=== PATIENT | female | born 1950 | race Caucasian/White ===

== ENCOUNTER 2017-02-17 12:45 | Emergency (ER) | payer SELFPAY ==
[~2017-02-17 12:45] MED LIST: NAPR-576 PO
[2017-02-17 12:47] VITALS: BP 167/89; PULSE 75; RESP 16; TEMP 98.5; O2SAT 97
--- NOTE | 2017-02-17 13:16 | PD ---
HPI Chief Complaint: Musculoskeletal Complaint Time Seen by Provider: 13:16 Travel History International Travel<30 days: No Contact w/Intl Traveler<30days: No Traveled to known affect area: No History of Present Illness HPI 66-year-old female presents to the emergency department complaining of right knee pain for approximately one month. States that she was walking approximately one month ago and felt a crack in her knee and developed increased pain since then. Currently she has pain with flexion and extension of her knee in particular has pain from the sitting to a standing position. Patient has not taken any medication [id number] for her pain or wrapped and iced.. When asked about her pain she points to the posterior aspect of her knee. Patient denies trauma, fever, chills, chest pain, shortness of breath, recent travel, blood disorders, surgeries, or fractures. Denies numbness, tingling, or weakness. PFSH Past Medical History Asthma: Yes Depression: Yes High Cholesterol: Yes COPD: Yes Cerebrovascular Accident: Yes (MINI STROKE) Diabetes: No Diminished Hearing: No GERD: Yes Headaches: Yes Hypertension: Yes Kidney Stones: Yes Neurologic: Yes (TUMOR BEHIND EYE) Seizures: Yes (SEIZURE 2001, CAUSE UNKNOWN, TOOK DILANTIN FOR SHORT PERIOD) Menopausal: Yes : 3 Para: 3 Past Surgical History Abdominal Surgery: Yes Section: Yes Hysterectomy: Yes Tonsillectomy: Yes Social History Alcohol Use: No Tobacco Use: No Substance Use: No Allergies-Medications (Allergen,Severity, Reaction): Coded Allergies: penicillin G (Unverified Allergy, Unknown, 11/19/16) Reported Meds & Prescriptions Reported Meds & Active Scripts Active Naproxen 500 Mg Tab 500 Mg PO Q12HR PRN Review of Systems Except as stated in HPI: all other systems reviewed are Neg Physical Exam Narrative GENERAL: Well developed well nourished in mild distress SKIN: Focused skin assessment warm/dry. HEAD: Atraumatic. Normocephalic. NECK: Trachea midline. No JVD. CARDIOVASCULAR: Regular rate and rhythm. No murmur appreciated. RESPIRATORY: No accessory muscle use. Clear to auscultation. Breath sounds equal bilaterally. MUSCULOSKELETAL: No obvious deformities. No clubbing. No cyanosis. No edema. Right knee TTP to appear aspect of posterior knee, mild TTP of the patella. Mild edema surrounding the knee joint. No erythema or lymphangitic Spread. Skin intact. Neurovascularly intact. Gabrielle's Sign negative bilaterally NEUROLOGICAL: Awake and alert. No obvious cranial nerve deficits. Motor grossly within normal limits. Normal speech. PSYCHIATRIC: Appropriate mood and affect; insight and judgment normal. Data Data Last Documented VS Vital Signs Date Time Temp Pulse Resp B/P (MAP) Pulse Ox O2 Delivery O2 Flow Rate FiO2 02/17/17 15:10 02/17/17 12:47 98.5 75 16 97 Orders Orders Knee, Ltd (1 Or 2vws) (02/17/17 ) Splint Or Brace Apply/Monitor (02/17/17 14:35) Ed Discharge Order (02/17/17 14:36) [facility] Medical Decision Making Medical Screen Exam Complete: Yes Emergency Medical Condition: Yes Differential Diagnosis Knee fracture versus sprain versus strain versus meniscus tear Narrative Course 66-year-old female presents to the emergency department complaining of right knee pain for approximately one month. States that she was walking approximately one month ago and felt a crack in her knee and developed increased pain since then. Currently she has pain with flexion and extension of her knee in particular has pain from the sitting to a standing position. Patient has not taken any medication [id number] for her pain or wrapped and iced.. When asked about her pain she points to the posterior aspect of her knee. Patient denies trauma, fever, chills, chest pain, shortness of breath, recent travel, blood disorders, surgeries, or fractures. Denies numbness, tingling, or weakness. Vital signs stable Physical exam findings consistent with right knee bursitis vs sprain. Gabrielle's Sign negative bilat. Imaging- negative for acute process Pt H&P consistent with bursitis vs meniscal involvement vs sprain. Pt to follow up with ortho or her PCP for further evaluation. OTC Tylenol or motrin. Knee brace placed for comfort measures. Pt understood plan, agrees, and will comply. Diagnosis Primary Impression: Knee sprain Qualified Codes: S83.91XA - Sprain of unspecified site of right knee, initial encounter Referrals: Primary Care Physician Additional Instructions: Elevate and compress the knee as tolerated. May take [id number] anti-inflammatories per package instructions Follow-up with your primary care physician within 2 days. Disposition: 01 DISCHARGE HOME Condition: Stable Roxi Guerra Feb 17, 2017 13:16
--- NOTE | 2017-02-17 14:30 | RADRPT ---
EXAM DATE/TIME: 02/17/2017 13:41 [facility] COMPARISON: No previous studies available for comparison. INDICATIONS : Patient states right knee pain. MEDICAL HISTORY : None. SURGICAL HISTORY : None. ENCOUNTER: Initial ACUITY: 1 week PAIN SCORE: 10/10 LOCATION: Right Knee FINDINGS: Soft tissue swelling super patella bursa without fracture. Alignment is anatomic. Bone density is n ormal. CONCLUSION: Soft tissue swelling, negative for fracture. Theo Yarbrough MD FACR on February 17, 2017 at 14:28 Board Certified Radiologist. This report was verified electronically.
== END 2017-02-17 15:13 | disposition home or self-care (01) ==
LOC: NEPK 12:45
DX: S83.91XA Sprain of unspecified site of right knee, initial encounter (principal); I10 Essential (primary) hypertension; E78.00 Pure hypercholesterolemia, unspecified; Z87.09 Personal history of other diseases of the respiratory system; Z86.59 Personal history of other mental and behavioral disorders; Z86.79 Personal history of other diseases of the circulatory system; Z87.19 Personal history of other diseases of the digestive system; Z87.442 Personal history of urinary calculi; Z86.69 Personal history of other diseases of the nervous system and sense organs; X58.XXXA Exposure to other specified factors, initial encounter; Y93.01 Activity, walking, marching and hiking
CPT/HCPCS: 73560; 99283; L1830

== ENCOUNTER 2017-05-22 12:56 | Emergency (ER) | payer SELFPAY ==
[~2017-05-22] VITALS: Ht 167.6 cm; Wt 72.0 kg
[2017-05-22 13:00] VITALS: BP 135/83; PULSE 82; RESP 18; TEMP 98.6; O2SAT 94
--- NOTE | 2017-05-22 13:08 | PD ---
HPI Chief Complaint: Headache Time Seen by Provider: 12:59 Travel History International Travel<30 days: No Contact w/Intl Traveler<30days: No Traveled to known affect area: No History of Present Illness HPI 66-year-old female presents emergency department for evaluation. Patient was walking across the road when she felt lightheaded. She felt like she is going to pass out. She denies any chest pain or tightness during this time. Denies any focal deficits or weakness. Patient was able to walk herself across the street with that on the side of the road where she contact a VAC. She states right now she just feels a little tired but overall well. She has not had any recent illnesses, fever, or chills. Denies any illicit drug use. She has no other symptoms to report. PFSH Past Medical History Asthma: Yes Depression: Yes High Cholesterol: Yes COPD: Yes Cerebrovascular Accident: Yes (MINI STROKE) Diabetes: No Diminished Hearing: No GERD: Yes Headaches: Yes Hypertension: Yes Kidney Stones: Yes Neurologic: Yes (TUMOR BEHIND EYE) Seizures: Yes (SEIZURE 2001, CAUSE UNKNOWN, TOOK DILANTIN FOR SHORT PERIOD) ?: Not Menopausal: Yes : 3 Para: 3 Past Surgical History Abdominal Surgery: Yes Section: Yes (X3) Hysterectomy: Yes Tonsillectomy: Yes Social History Alcohol Use: No Tobacco Use: No Substance Use: No Allergies-Medications (Allergen,Severity, Reaction): Coded Allergies: penicillin G (Unverified Allergy, Unknown, 11/19/16) Reported Meds & Prescriptions Reported Meds & Active Scripts Active Naproxen 500 Mg Tab 500 Mg PO Q12HR PRN Review of Systems Except as stated in HPI: all other systems reviewed are Neg Physical Exam Narrative GENERAL: All nourished female patient, in no acute distress. SKIN: Focused skin assessment warm/dry. HEAD: Atraumatic. Normocephalic. EYES: Pupils equal and round. No scleral icterus. No injection or drainage. ENT: No nasal bleeding or discharge. Mucous membranes pink and moist. NECK: Trachea midline. No JVD. CARDIOVASCULAR: Regular rate and rhythm. No murmur appreciated. RESPIRATORY: No accessory muscle use. Clear to auscultation. Breath sounds equal bilaterally. GASTROINTESTINAL: Abdomen soft, non-tender, nondistended. Hepatic and splenic margins not palpable. MUSCULOSKELETAL: No obvious deformities. No clubbing. No cyanosis. No edema. NEUROLOGICAL: Awake and alert. No obvious cranial nerve deficits. Motor grossly within normal limits. Normal speech. PSYCHIATRIC: Appropriate mood and affect; insight and judgment normal. Data Data Last Documented VS Vital Signs Date Time Temp Pulse Resp B/P (MAP) Pulse Ox O2 Delivery O2 Flow Rate FiO2 05/22/17 16:56 05/22/17 16:44 70 85 83 05/22/17 14:57 16 100 Room Air 05/22/17 13:00 98.6 Orders Orders Electrocardiogram (05/22/17 13:06) Basic Metabolic Panel (Bmp) (05/22/17 13:06) Complete Blood Count With Diff (05/22/17 13:06) Urinalysis - C+S If Indicated (05/22/17 13:06) Ecg Monitoring (05/22/17 13:06) Iv Access Insert/Monitor (05/22/17 13:06) Oximetry (05/22/17 13:06) Sodium Chloride 0.9% Flush (Ns Flush) (05/22/17 13:15) Sodium Chlor 0.9% 1000 Ml Inj (Ns 1000 M (05/22/17 13:15) Troponin I (05/22/17 14:29) Ckmb (Isoenzyme) Profile (05/22/17 14:29) CKMB (05/22/17 13:00) CKMB% (05/22/17 13:00) Orthostatic Vital Signs (05/22/17 16:17) Ed Discharge Order (05/22/17 16:26) Labs Laboratory Tests Test 05/22/17 13:00 05/22/17 14:50 White Blood Count 5.8 TH/MM3 Red Blood Count 4.26 MIL/MM3 Hemoglobin 12.3 GM/DL Hematocrit 37.1 % Mean Corpuscular Volume 87.0 FL Mean Corpuscular Hemoglobin 28.8 PG Mean Corpuscular Hemoglobin Concent 33.1 % Red Cell Distribution Width 14.4 % Platelet Count 260 TH/MM3 Mean Platelet Volume 8.5 FL Neutrophils (%) (Auto) 51.7 % Lymphocytes (%) (Auto) 35.3 % Monocytes (%) (Auto) 8.6 % Eosinophils (%) (Auto) 3.1 % Basophils (%) (Auto) 1.3 % Neutrophils # (Auto) 3.0 TH/MM3 Lymphocytes # (Auto) 2.0 TH/MM3 Monocytes # (Auto) 0.5 TH/MM3 Eosinophils # (Auto) 0.2 TH/MM3 Basophils # (Auto) 0.1 TH/MM3 CBC Comment DIFF FINAL Differential Comment Blood Urea Nitrogen 11 MG/DL Creatinine 0.90 MG/DL Random Glucose 110 MG/DL Calcium Level 9.2 MG/DL Sodium Level 140 MEQ/L Potassium Level 4.2 MEQ/L Chloride Level 106 MEQ/L Carbon Dioxide Level 25.9 MEQ/L Anion Gap 8 MEQ/L Estimat Glomerular Filtration Rate 63 ML/MIN Total Creatine Kinase 131 U/L Creatine Kinase MB LESS THAN 0.5 NG/ML Troponin I LESS THAN 0.02 NG/ML Urine Color YELLOW Urine Turbidity CLEAR Urine pH 5.5 Urine Specific [place] 1.007 Urine Protein NEG mg/dL Urine Glucose (UA) NEG mg/dL Urine Ketones NEG mg/dL Urine Occult Blood NEG Urine Nitrite NEG Urine Bilirubin NEG Urine Urobilinogen LESS THAN 2.0 MG/DL Urine Leukocyte Esterase TRACE Urine WBC 3 /hpf Microscopic Urinalysis Comment CULT NOT INDICATED MDM Medical Decision Making Medical Screen Exam Complete: Yes Emergency Medical Condition: Yes Medical Record Reviewed: Yes Differential Diagnosis Syncope versus near-syncope versus electrolyte abnormality versus dehydration versus normal exam Narrative Course 66-year-old female presents emergency department for evaluation. Patient appears without distress. No focal deficits or weakness. She has no headache. Lab work is complete area patient is given IV normal saline fluid. EKG is reviewed by my attending physician. Laboratory Tests Test 05/22/17 13:00 05/22/17 14:50 White Blood Count 5.8 TH/MM3 Red Blood Count 4.26 MIL/MM3 Hemoglobin 12.3 GM/DL Hematocrit 37.1 % Mean Corpuscular Volume 87.0 FL Mean Corpuscular Hemoglobin 28.8 PG Mean Corpuscular Hemoglobin Concent 33.1 % Red Cell Distribution Width 14.4 % Platelet Count 260 TH/MM3 Mean Platelet Volume 8.5 FL Neutrophils (%) (Auto) 51.7 % Lymphocytes (%) (Auto) 35.3 % Monocytes (%) (Auto) 8.6 % Eosinophils (%) (Auto) 3.1 % Basophils (%) (Auto) 1.3 % Neutrophils # (Auto) 3.0 TH/MM3 Lymphocytes # (Auto) 2.0 TH/MM3 Monocytes # (Auto) 0.5 TH/MM3 Eosinophils # (Auto) 0.2 TH/MM3 Basophils # (Auto) 0.1 TH/MM3 CBC Comment DIFF FINAL Differential Comment Blood Urea Nitrogen 11 MG/DL Creatinine 0.90 MG/DL Random Glucose 110 MG/DL Calcium Level 9.2 MG/DL Sodium Level 140 MEQ/L Potassium Level 4.2 MEQ/L Chloride Level 106 MEQ/L Carbon Dioxide Level 25.9 MEQ/L Anion Gap 8 MEQ/L Estimat Glomerular Filtration Rate 63 ML/MIN Total Creatine Kinase 131 U/L Creatine Kinase MB LESS THAN 0.5 NG/ML Troponin I LESS THAN 0.02 NG/ML Urine Color YELLOW Urine Turbidity CLEAR Urine pH 5.5 Urine Specific [place] 1.007 Urine Protein NEG mg/dL Urine Glucose (UA) NEG mg/dL Urine Ketones NEG mg/dL Urine Occult Blood NEG Urine Nitrite NEG Urine Bilirubin NEG Urine Urobilinogen LESS THAN 2.0 MG/DL Urine Leukocyte Esterase TRACE Urine WBC 3 /hpf Microscopic Urinalysis Comment CULT NOT INDICATED Lab work is reviewed by myself and my attending physician. There are no acute concerns. Patient be discharged home at this time. Diagnosis Primary Impression: Near syncope Referrals: Primary Care Physician Patient Instructions: General Instructions, Near Syncope (ED) Additional Instructions: And plenty of water Follow-up with primary care provider Return immediately with any acute worsening of symptoms Med/Other Pt SpecificInfo: No Change to Meds, No Meds Exist/No RX given Disposition: 01 DISCHARGE HOME Condition: Stable Bushra Kwon May 22, 2017 13:08
[2017-05-22] MEDS ORDERED: SODIUM CHLOR 0.9% 1000 ML INJ 1,000 ML IV ONE (13:15)
[2017-05-22] MEDS ORDERED: SODIUM CHLORIDE 0.9% FLUSH 10 ML FLUSH IVF PRN (13:15)
[2017-05-22 13:22] VITALS: O2SAT 93
[2017-05-22 13:58] LABS: BASOPHIL # 0.1 TH/MM3 (0-0.2); BASOPHIL % 1.3 % (0.0-2.0); EOSINOPHIL # 0.2 TH/MM3 (0-0.4); EOSINOPHIL % 3.1 % (0.0-4.0); HEMATOCRIT 37.1 % (35.0-46.0); HEMOGLOBIN 12.3 GM/DL (11.6-15.3); LYMPH % 35.3 % (9.0-44.0); MEAN CORPUSCULAR HEMOGLOBIN 28.8 PG (27.0-34.0); MEAN CORPUSCULAR HGB CONC 33.1 % (32.0-36.0); MEAN PLATELET VOLUME 8.5 FL (7.0-11.0); MONO % 8.6 % (0.0-8.0); MONOCYTE # 0.5 TH/MM3 (0-0.9); NEUT % 51.7 % (16.0-70.0); PLATELET COUNT 260 TH/MM3 (150-450); RED BLOOD COUNT 4.26 MIL/MM3 (4.00-5.30); RED CELL DISTRIBUTION WIDTH 14.4 % (11.6-17.2); WHITE BLOOD COUNT 5.8 TH/MM3 (4.0-11.0)
[2017-05-22 14:16] LABS: BICARBONATE 25.9 MEQ/L (21.0-32.0); CALCIUM 9.2 MG/DL (8.5-10.1); CREATININE 0.9 MG/DL (0.50-1.00)
[2017-05-22 14:57] VITALS: BP 135/73; PULSE 75; RESP 16; O2SAT 100
[2017-05-22 15:57] LABS: BILIRUBIN, URINE NEG (NEG); BLOOD, URINE NEG (NEG); GLUCOSE,URINE NEG (NEG); KETONE, URINE NEG (NEG); NITRITE,URINE NEG (NEG); PH, URINE 5.5 (5.0-8.5); URINE COLOR YELLOW (YELLW/STRAW); URINE LEUKOCYTE ESTERASE TRACE (NEG)
[2017-05-22 16:11] LABS: TROPONIN I LESS THAN 0.02 NG/ML (0.02-0.05)
--- NOTE | 2017-05-22 16:20 | PD ---
Physical Exam Date Seen by Provider: May 22, 2017 Time Seen by Provider: 15:00 Narrative I, Dr. Guan, have reviewed the advance practice practitioner's documentation and am in agreement, met with the patient face to face, made the diagnosis, and the medical decision making was done by me. *My assessment and Findings: Patient seen and evaluated with nurse practitioner , please see nurse practitioner note for further details. She apparently started feeling dizzy, feel like she is going to pass out, sat down and occur. She states it is passing now and is a little nauseous. She states that she has no focal numbness or weakness. She denies any fevers, vomiting, or other issues. GENERAL: Well-nourished, well-developed elderly female patient in mild distress. Awake and oriented 3. SKIN: Focused skin assessment warm/dry. HEAD: Normocephalic. EYES: No scleral icterus. No injection or drainage. NECK: Supple, trachea midline. No JVD or lymphadenopathy. CARDIOVASCULAR: Regular rate and rhythm without murmurs, gallops, or rubs. RESPIRATORY: Breath sounds equal bilaterally. No accessory muscle use. GASTROINTESTINAL: Abdomen soft, non-tender, nondistended. MUSCULOSKELETAL: No cyanosis, or edema. BACK: Nontender without obvious deformity. No CVA tenderness. NEUROLOGICAL: Awake and alert. Cranial nerves II through XII intact. Motor and sensory grossly within normal limits. Five out of 5 muscle strength in all muscle groups. Normal speech. EKG shows NSR, no ST elevation or depression, and no arrhythmias. No significant T-wave inversions. Laboratory Tests Test 05/22/17 13:00 05/22/17 14:50 Monocytes (%) (Auto) 8.6 % (0.0-8.0) Random Glucose 110 MG/DL (74-106) Estimat Glomerular Filtration Rate 63 ML/MIN (>89) Troponin I LESS THAN 0.02 NG/ML Urine Leukocyte Esterase TRACE (NEG) Symptoms had subsided in the ER after period of observation. She is awake, alert, has no focal neurological deficits. She is ambulatory without issues. At this point, my plan would be to release her with follow-up to primary care physician. Stay hydrated. Return for worsening of symptoms as necessary. The plan has been discussed with her and she states understanding. Data Data Last Documented VS Vital Signs Date Time Temp Pulse Resp B/P (MAP) Pulse Ox O2 Delivery O2 Flow Rate FiO2 05/22/17 16:44 70 148/85 (106) 85 152/84 (106) 83 143/91 (108) 05/22/17 14:57 16 100 Room Air 05/22/17 13:00 98.6 Orders Orders Electrocardiogram (05/22/17 13:06) Basic Metabolic Panel (Bmp) (05/22/17 13:06) Complete Blood Count With Diff (05/22/17 13:06) Urinalysis - C+S If Indicated (05/22/17 13:06) Ecg Monitoring (05/22/17 13:06) Iv Access Insert/Monitor (05/22/17 13:06) Oximetry (05/22/17 13:06) Sodium Chloride 0.9% Flush (Ns Flush) (05/22/17 13:15) Sodium Chlor 0.9% 1000 Ml Inj (Ns 1000 M (05/22/17 13:15) Troponin I (05/22/17 14:29) Ckmb (Isoenzyme) Profile (05/22/17 14:29) CKMB (05/22/17 13:00) CKMB% (05/22/17 13:00) Orthostatic Vital Signs (05/22/17 16:17) Ed Discharge Order (05/22/17 16:26) Labs Laboratory Tests Test 05/22/17 13:00 05/22/17 14:50 White Blood Count 5.8 TH/MM3 Red Blood Count 4.26 MIL/MM3 Hemoglobin 12.3 GM/DL Hematocrit 37.1 % Mean Corpuscular Volume 87.0 FL Mean Corpuscular Hemoglobin 28.8 PG Mean Corpuscular Hemoglobin Concent 33.1 % Red Cell Distribution Width 14.4 % Platelet Count 260 TH/MM3 Mean Platelet Volume 8.5 FL Neutrophils (%) (Auto) 51.7 % Lymphocytes (%) (Auto) 35.3 % Monocytes (%) (Auto) 8.6 % Eosinophils (%) (Auto) 3.1 % Basophils (%) (Auto) 1.3 % Neutrophils # (Auto) 3.0 TH/MM3 Lymphocytes # (Auto) 2.0 TH/MM3 Monocytes # (Auto) 0.5 TH/MM3 Eosinophils # (Auto) 0.2 TH/MM3 Basophils # (Auto) 0.1 TH/MM3 CBC Comment DIFF FINAL Differential Comment Blood Urea Nitrogen 11 MG/DL Creatinine 0.90 MG/DL Random Glucose 110 MG/DL Calcium Level 9.2 MG/DL Sodium Level 140 MEQ/L Potassium Level 4.2 MEQ/L Chloride Level 106 MEQ/L Carbon Dioxide Level 25.9 MEQ/L Anion Gap 8 MEQ/L Estimat Glomerular Filtration Rate 63 ML/MIN Total Creatine Kinase 131 U/L Creatine Kinase MB LESS THAN 0.5 NG/ML Troponin I LESS THAN 0.02 NG/ML Urine Color YELLOW Urine Turbidity CLEAR Urine pH 5.5 Urine Specific [place] 1.007 Urine Protein NEG mg/dL Urine Glucose (UA) NEG mg/dL Urine Ketones NEG mg/dL Urine Occult Blood NEG Urine Nitrite NEG Urine Bilirubin NEG Urine Urobilinogen LESS THAN 2.0 MG/DL Urine Leukocyte Esterase TRACE Urine WBC 3 /hpf Microscopic Urinalysis Comment CULT NOT INDICATED MDM Medical Record Reviewed: Yes Supervised Visit with SESAR: Yes Diagnosis Primary Impression: Dizziness Patient Instructions: General Instructions Departure Forms: Tests/Procedures Disposition: 01 DISCHARGE HOME Condition: Stable Jeannie Guan MD May 22, 2017 16:19
[2017-05-22 16:44] VITALS: BP_SYST 143; BP_SYST 148; BP_SYST 152; BP_DIAS 84; BP_DIAS 85; BP_DIAS 91
--- NOTE | 2017-05-24 01:36 | EKG ---
Date Performed: 05/22/2017 Time Performed: 13:10:01 PTAGE: 66 years EKG: Sinus rhythm DELAYED R WAVE PROGRESSION BORDERLINE ECG Since the prior tracing, there has been no significant lauren nge DOCTOR: Bernardino Pierce Interpretating Date/Time 05/24/2017 01:36:11
== END 2017-05-22 16:57 | disposition home or self-care (01) ==
LOC: NEPC 12:56
DX: R55 Syncope and collapse (principal); J44.9 Chronic obstructive pulmonary disease, unspecified; I10 Essential (primary) hypertension; R51 Headache; R94.31 Abnormal electrocardiogram [ECG] [EKG]
CPT/HCPCS: 80048; 81001; 82550; 82552; 84484; 85025; 93005; 96360; 96361; 99284; J7030